=== PATIENT | male | born 1975 | race Caucasian/White ===

== ENCOUNTER 2017-11-05 22:19 | Emergency (ER) | payer BC, MEDICAID, OTHER ==
[~2017-11-05] VITALS: Ht 170.2 cm; Wt 90.3 kg
[~2017-11-05 22:19] MED LIST: HYDR1TAB PO
[2017-11-05] MEDS ORDERED: KETOROLAC TROMETHAMINE 15 MG/ML VIAL ONE (23:27)
[2017-11-05] MEDS ORDERED: CYCLOBENZAPRINE 10 MG TABLET ONE (23:27)
[2017-11-05 23:29] LABS: BASOPHILS # (AUTO) 0.1 /CMM (0.0-0.2); BASOPHILS % (AUTO) 0.6 % (0.0-2.0); EOSINOPHILS % (AUTO) 1.6 % (0.0-6.0); HEMATOCRIT 43 % (39-51); HEMOGLOBIN 14.3 g/dL (13.5-17.5); LYMPHOCYTES # (AUTO) 3.7 /CMM (0.8-4.8); LYMPHOCYTES % (AUTO) 35.5 % (20.0-44.0); MEAN CORPUSCULAR HGB CONC 33 g/dl (31.0-36.0); MEAN CORPUSCULAR VOLUME 94 fL (80-96); MONOCYTES # (AUTO) 0.6 /CMM (0.1-1.30); MONOCYTES % (AUTO) 5.3 % (2.0-12.0); NEUTROPHILS # (AUTO) 5.9 /CMM (1.8-8.9); PLATELET COUNT (AUTO) 320 /CMM (150-450); RDW COEFFICIENT OF VARIATION 13.6 (11.5-15.0); WHITE BLOOD COUNT (AUTO) 10.3 K/uL (4.3-11.0)
[2017-11-05] MEDS: KETOROLAC TROMETHAMINE INJ 30 MG/ML VIAL IV ONE (23:36)
[2017-11-05] MEDS: CYCLOBENZAPRINE 10 MG TABLET PO ONE (23:37)
[2017-11-05 23:38] LABS: CALCIUM, SERUM 8.6 mg/dL (8.5-10.1); CARBON DIOXIDE 25 mmol/L (21-32); CHLORIDE 105 mmol/L (98-107); CREATININE 0.9 mg/dL (0.6-1.3); GLUCOSE 98 mg/dL (74-106); POTASSIUM 3.8 mmol/L (3.5-5.1); SODIUM SERUM 138 mmol/L (136-145); UREA NITROGEN, BLOOD 22 mg/dL (7-18)
[2017-11-05 23:44] LABS: ALANINE AMINOTRANSFERASE 39 U/L (12-78); ALBUMIN 3.8 g/dL (3.4-5.0); ALKALINE PHOSPHATASE 103 U/L (46-116); ASPARTATE AMINOTRANSFERASE 19 U/L (15-37); BILIRUBIN,DIRECT 0.1 mg/dL (0.0-0.2); BILIRUBIN,TOTAL 0.4 mg/dL (0.2-1.0); TOTAL PROTEIN, SERUM 7.1 g/dL (6.4-8.2)
[2017-11-05 23:46] LABS: TROPONIN I < 0.017 ng/mL (0.00-0.056)
[2017-11-05 23:56] LABS: D-DIMER 0.24 mg/L(FEU (0.17-0.50)
[2017-11-05 23:59] LABS: INR 0.96 (0.87-1.13)
[2017-11-06 01:00] VITALS: BP 125/75
--- NOTE | 2017-11-06 01:05 | NUR ---
PT SEEN AND EVAL BY ZAIRE MO, ALL LABS EVAL BY ZAIRE MO WNR,T&R.
== END 2017-11-06 01:05 | disposition home or self-care (01) ==
LOC: ER 22:23
DX: R07.89 Other chest pain (principal); M62.838 Other muscle spasm; I10 Essential (primary) hypertension; F17.200 Nicotine dependence, unspecified, uncomplicated; I49.8 Other specified cardiac arrhythmias
CPT/HCPCS: 36415; 71045; 80048; 80076; 84484; 85025; 85378; 85730; 93005; 96374; 99285; A4606; J1885; Z7610

== ENCOUNTER 2018-04-29 22:15 | Emergency (ER) | payer BC, MEDICAID ==
[~2018-04-29] VITALS: Ht 167.6 cm; Wt 66.2 kg
--- NOTE | 2018-04-29 22:25 | NUR ---
PT WAS BIB [facility] WITH A C/O CP/PRESSURE X 1 WK. PT STATED THAT THE MIDSTERNAL CP CHANGED TO RT AND LEFT SIDED SQUEEZING PRESSURE, WHICH MADE THE PT CALL 911. PT STATED THAT PRIOR TO RESCUE ARRIVING, PT FELT A RAPID HEART RATE/ PALPATATIONS. PT ALSO C/O FEEING DIZZY TODAY PRIOR TO THE PRESSURE AND STILL FEELS DIZZY WHEN HE AMBULATES.
--- NOTE | 2018-04-29 22:52 | NUR ---
PT AMBULATED TO THE BATHROOM WITH A STEADY GAIT.
[2018-04-29] MEDS ORDERED: ASPIRIN 81 MG TAB.CHEW ONE (22:53)
[2018-04-29] MEDS ORDERED: ONDANSETRON HCL/PF 4 MG/2 ML VIAL IVP ONE (23:00)
[2018-04-29] MEDS ORDERED: IV NS 0.9% 1,000 ML BAG IV ONE (23:00)
[2018-04-29] MEDS ORDERED: MORPHINE SULFATE INJ 2 MG/ML DISP.SYRIN IV ONE (23:00)
[2018-04-29] MEDS ORDERED: ASPIRIN 81 MG TAB.CHEW PO ONE (23:00)
--- NOTE | 2018-04-29 23:00 | NUR ---
20G IV STARTED IN LEFT HAND. BLOOD WAS DRAWN AND SENT TO LAB.
[2018-04-29] MEDS ORDERED: ONDANSETRON HCL/PF 4 MG/2 ML VIAL ONE (23:06)
[2018-04-29] MEDS ORDERED: MORPHINE SULFATE INJ 4 MG/ML DISP.SYRIN ONE (23:06)
[2018-04-29 23:14] LABS: BASOPHILS # (AUTO) 0.1 /CMM (0.0-0.2); BASOPHILS % (AUTO) 0.8 % (0.0-2.0); EOSINOPHILS % (AUTO) 5.2 % (0.0-6.0); HEMATOCRIT 40 % (39-51); HEMOGLOBIN 13.7 g/dL (13.5-17.5); LYMPHOCYTES # (AUTO) 3.6 /CMM (0.8-4.8); LYMPHOCYTES % (AUTO) 43.6 % (20.0-44.0); MEAN CORPUSCULAR HGB CONC 34 g/dl (31.0-36.0); MEAN CORPUSCULAR VOLUME 88 fL (80-96); MONOCYTES # (AUTO) 0.6 /CMM (0.1-1.30); MONOCYTES % (AUTO) 6.8 % (2.0-12.0); NEUTROPHILS # (AUTO) 3.6 /CMM (1.8-8.9); NEUTROPHILS % (AUTO) 43.6 % (43.0-81.0); PLATELET COUNT (AUTO) 262 /CMM (150-450); RED BLOOD CELL COUNT(AUTO) 4.57 MIL/uL (4.5-6.0); WHITE BLOOD COUNT (AUTO) 8.2 K/uL (4.3-11.0)
[2018-04-29] MEDS ORDERED: diphenhydrAMINE HCL 50 MG/ML VIAL ONE (23:16)
[2018-04-29 23:22] LABS: CALCIUM, SERUM 9.1 mg/dL (8.5-10.1); CARBON DIOXIDE 30 mmol/L (21-32); CHLORIDE 104 mmol/L (98-107); CREATININE 0.8 mg/dL (0.6-1.3); GLUCOSE 88 mg/dL (74-106); POTASSIUM 3.5 mmol/L (3.5-5.1); SODIUM SERUM 141 mmol/L (136-145); UREA NITROGEN, BLOOD 11 mg/dL (7-18)
--- NOTE | 2018-04-29 23:25 | NUR ---
PT REACTED TO THE MORPHINE. PT'S HAND AND WRIST TURNED RED AND IS ITCHY. MD NOTIFIED. NEW ORDERS GIVEN.
--- NOTE | 2018-04-29 23:25 | NUR ---
ADDED MORPHINE TO PT'S LIST OF ALLERGIES.
[2018-04-29] MEDS ORDERED: diphenhydrAMINE HCL 50 MG/ML VIAL IV ONE (23:30)
--- NOTE | 2018-04-30 00:50 | NUR ---
CALLED [facility] RE: XRAY READ
--- NOTE | 2018-04-30 01:05 | NUR ---
PT AMBULATED OUT WITH A STEADY GAIT. PT STATED THAT HE FELT BETTER AND WOULD LIKE TO GO HOME. PT WAS TOLD THAT WE ARE WAITING FOR ALL THE TESTS RESULTS.
--- NOTE | 2018-04-30 01:52 | NUR ---
CALLED LAB RE: REPEAT TROPONIN
--- NOTE | 2018-04-30 01:55 | NUR ---
DENISE, HOME CARE SCHEDULER, IS AT THE BEDSIDE FOR TROPONIN REDRAW.
[2018-04-30 02:40] VITALS: BP 136/88
== END 2018-04-30 02:32 | disposition home or self-care (01) ==
LOC: ER 22:17
DX: R07.89 Other chest pain (principal); R42 Dizziness and giddiness; I10 Essential (primary) hypertension; F17.200 Nicotine dependence, unspecified, uncomplicated; R00.2 Palpitations; Z88.6 Allergy status to analgesic agent; Z88.5 Allergy status to narcotic agent
CPT/HCPCS: 36415 ×2; 71045; 80048; 84484 ×2; 85025; 93005 ×2; 96361; 96374; 96375; 99284; 99406; J1200; J2270; J2405; J7030

== ENCOUNTER 2018-06-20 20:56 | Emergency (ER) | payer BC, MEDICAID ==
[~2018-06-20] VITALS: Ht 167.6 cm; Wt 77.1 kg
--- NOTE | 2018-06-20 21:14 | NUR ---
BIBS W/ C/O L ELBOWP PAIN AND SWELLING. S/P HITTING HIS ELBOW SOMWHERE. REPORTED IT'S MORE TENDER TO TOUCH AND LESS PAIN WHEN HE'S NOT MOVING OR BENDING IT. SEEN BY . WILL CONT TO MONITOR,
[2018-06-20 21:44] VITALS: BP 118/84
== END 2018-06-20 21:45 | disposition home or self-care (01) ==
LOC: ER 21:00
DX: M70.22 Olecranon bursitis, left elbow (principal); I10 Essential (primary) hypertension; Z88.6 Allergy status to analgesic agent; F17.200 Nicotine dependence, unspecified, uncomplicated; W22.01XA Walked into wall, initial encounter; Y93.89 Activity, other specified; Y92.89 Other specified places as the place of occurrence of the external cause; Y99.8 Other external cause status
CPT/HCPCS: 73080-TC